=== PATIENT | female | born 1950 | race Caucasian/White ===

== ENCOUNTER 2022-04-18 07:42 | Day surgery (SDC) | payer MEDICARE, OTHER ==
[2022-04-18] MEDS ORDERED: LIDOCAINE HCL 2% 100 MG/5 ML IJ ONE (07:43)
[2022-04-18] MEDS ORDERED: DIPRIVAN 200 MG/20 ML IV ONE (09:33)
[2022-04-18] MEDS ORDERED: Lactated Ringers 1,000 ML IV ONE (10:03)
--- NOTE | 2022-04-18 10:43 | XRAY ---
Indication: Bilateral L4-S1 MBB. Intraoperative fluoroscopy provided for 21 seconds. Single digital spot image submitted for interpretation demonstrates posterior needle tips projecting over the expected left and right L4-S1 nerve roots. Correlate with intraoperative findings/report. Incidental incompletely visualized bilateral posterior spinal fusion hardware.
--- NOTE | 2022-04-18 10:48 | XRAY ---
21 seconds fluoroscopy time in surgery for bilateral L4-S1 MBB.
== END 2022-04-18 09:57 | disposition home or self-care (01) ==
LOC: SDC-PAIN 07:42
PROVIDERS: ATTEND Psychiatry & Neurology Pain Medicine
DX: M47.816 Spondylosis without myelopathy or radiculopathy, lumbar region (principal); E11.9 Type 2 diabetes mellitus without complications; Z79.899 Other long term (current) drug therapy
CPT/HCPCS: 64493; 64494; 72020; 77002; 82947; J2704

== ENCOUNTER 2022-05-09 07:59 | Day surgery (SDC) | payer MEDICARE, OTHER ==
[2022-05-09] MEDS ORDERED: Depo-Medrol 40 MG/ML IM ONE (08:00)
[2022-05-09] MEDS ORDERED: Marcaine Mpf 0.5% Vial 30 Ml IJ ONE (08:00)
[2022-05-09] MEDS ORDERED: DIPRIVAN 200 MG/20 ML IV ONE (09:48)
[2022-05-09] MEDS ORDERED: Lactated Ringers 1,000 ML IV ONE (10:22)
--- NOTE | 2022-05-09 10:53 | XRAY ---
Indication: Bilateral L4-S1 MBB. Intraoperative fluoroscopy provided for 48 seconds. 3 digital spot images submitted for interpretation demonstrates posterior needle tips projecting over the expected left and right L4-S1 nerve roots. Correlate with intraoperative findings/report. Incidental bilateral L3-L5 posterior fusion hardware and L3-L4 intervertebral spacer.
--- NOTE | 2022-05-09 11:05 | XRAY ---
48 seconds of fluoroscopy was used in surgery for a bilateral L4-S1 MBB.
== END 2022-05-09 10:15 | disposition home or self-care (01) ==
LOC: SDC-PAIN 07:59
PROVIDERS: ATTEND Psychiatry & Neurology Pain Medicine
DX: M47.816 Spondylosis without myelopathy or radiculopathy, lumbar region (principal); E11.9 Type 2 diabetes mellitus without complications; Z79.899 Other long term (current) drug therapy
CPT/HCPCS: 64493; 64494; 72020; 77002; 82947; J1030; J2704

== ENCOUNTER 2022-05-30 08:21 | Day surgery (SDC) | payer MEDICARE, OTHER ==
[2022-05-30] MEDS ORDERED: Depo-Medrol 40 MG/ML IM ONE (08:22)
[2022-05-30] MEDS ORDERED: XYLOCAINE-MPF 1% 5ML SDV IJ ONE (08:22)
[2022-05-30] MEDS ORDERED: Marcaine Mpf 0.5% Vial 30 Ml IJ ONE (08:22)
[2022-05-30] MEDS ORDERED: DIPRIVAN 200 MG/20 ML IV ONE (09:44)
--- NOTE | 2022-05-30 11:35 | XRAY ---
Indication: Right L4-S1 RFA. Intraoperative fluoroscopy provided for 45 seconds. 4 digital spot image submitted for interpretation demonstrates posterior needle tips projecting over the expected right L4-S1 nerve roots. Correlate with intraoperative findings/report. Incidental incompletely visualized bilateral posterior lower lumbar fusion hardware.
--- NOTE | 2022-05-30 11:58 | XRAY ---
45 seconds fluoroscopy time in surgery for right L4-S1 RFA.
[2022-05-30] MEDS ORDERED: Lactated Ringers 1,000 ML IV ONE (12:24)
== END 2022-05-30 10:15 | disposition home or self-care (01) ==
LOC: SDC-PAIN 08:21
PROVIDERS: ATTEND Psychiatry & Neurology Pain Medicine
DX: M47.816 Spondylosis without myelopathy or radiculopathy, lumbar region (principal); E11.9 Type 2 diabetes mellitus without complications; Z79.899 Other long term (current) drug therapy
CPT/HCPCS: 64635; 64636; 72100; 77002; 82947; 99100; J1030; J2704

== ENCOUNTER 2022-06-13 08:55 | Day surgery (SDC) | payer MEDICARE, OTHER ==
[2022-06-13] MEDS ORDERED: Marcaine Mpf 0.5% Vial 30 Ml IJ ONE (08:56)
[2022-06-13] MEDS ORDERED: XYLOCAINE-MPF 1% 5ML SDV IJ ONE (08:56)
[2022-06-13] MEDS ORDERED: Depo-Medrol 40 MG/ML IM ONE (08:56)
[2022-06-13] MEDS ORDERED: DIPRIVAN 200 MG/20 ML IV ONE (10:06)
[2022-06-13] MEDS ORDERED: Lactated Ringers 1,000 ML IV ONE (10:17)
--- NOTE | 2022-06-13 14:00 | XRAY ---
Indication: Left L4-S1 RFA. Intraoperative fluoroscopy provided for 41 seconds. 3 digital spot image submitted for interpretation demonstrates posterior needle tips projecting over the expected left L4-S1 nerve roots. Correlate with intraoperative findings/report. Incidental incompletely visualized bilateral posterior lower lumbar fusion hardware.
--- NOTE | 2022-06-13 16:47 | XRAY ---
41 seconds fluoroscopy time in surgery for left L4-S1 RFA.
== END 2022-06-13 10:31 | disposition home or self-care (01) ==
LOC: SDC-PAIN 08:55
PROVIDERS: ATTEND Psychiatry & Neurology Pain Medicine
DX: M47.816 Spondylosis without myelopathy or radiculopathy, lumbar region (principal); E10.9 Type 1 diabetes mellitus without complications
CPT/HCPCS: 64635; 64636; 72100; 77002; 82947; 99100; J1030; J2704

== ENCOUNTER 2022-10-31 14:33 | Day surgery (SDC) | payer MEDICARE, OTHER ==
[2022-10-31] MEDS ORDERED: Depo-Medrol 40 MG/ML IM ONE (14:34)
[2022-10-31] MEDS ORDERED: BUPIVACAINE 0.5% VIAL IJ ONE (14:34)
[2022-10-31] MEDS ORDERED: LIDOCAINE HCL 1% 50 MG/5 ML VL PF IJ ONE (14:34)
--- NOTE | 2022-10-31 20:54 | XRAY ---
Indication: Right SI joint injection. Intraoperative fluoroscopy provided for 13 seconds. 2 digital spot image submitted for interpretation demonstrates posterior needle tip projecting over the right SI joint. Correlate with intraoperative findings/report. Incidental partially visualized right hip arthroplasty.
--- NOTE | 2022-11-01 08:36 | XRAY ---
13 seconds of fluoroscopy was used in surgery for a right SI joint injection.
== END 2022-10-31 18:00 | disposition home or self-care (01) ==
LOC: SDC-PAIN 14:33
PROVIDERS: ATTEND Psychiatry & Neurology Pain Medicine
DX: M46.1 Sacroiliitis, not elsewhere classified (principal); E10.9 Type 1 diabetes mellitus without complications; Z79.899 Other long term (current) drug therapy
CPT/HCPCS: 27096; 72170; 77002; 82947; G0260; J1030; J2001